=== PATIENT | male | born 1965 | race Caucasian/White ===

== ENCOUNTER 2018-02-28 03:45 | Emergency (ER) | payer MEDICAID ==
[~2018-02-28] VITALS: Ht 165.1 cm; Wt 70.4 kg
[2018-02-28 03:54] VITALS: BP 182/104
--- NOTE | 2018-02-28 04:01 | NUR ---
52/M BIB FAMILY W C/O RT SIDE CHEST PAIN AND SOB X 0200 TODAY. CHEST PAIN, PRESSURE-LIKE, NONPROVOKED, NONRADIAITING X 0200, PER FAMILY PT CP HAS BEEN INTERMITTENT FOR 2 MONTHS AND HAS BEEN SEEN BY MD. HEART SOUNDS NORMAL. DENIES N/V, PT IS NONDIAPHORETIC. ALL LUNG SOUNDS CBTA, 18RR EVEN AND UNLABORED, SATS 98% RA. DENIES OTHER PMH/RX/OTC
--- NOTE | 2018-02-28 04:02 | NUR ---
PT AMBULATED TO BED 6
[2018-02-28] MEDS ORDERED: ASPIRIN 325 MG TAB PO ONE (04:10)
[2018-02-28 04:21] LABS: BASOPHILS # (AUTO) 0.1 K/uL (0.00-0.22); BASOPHILS % (AUTO) 1.1 % (0.0-2.0); EOSINOPHILS # (AUTO) 0.3 K/uL (0-0.4); EOSINOPHILS % (AUTO) 3.9 % (0.0-4.0); HEMATOCRIT 44.1 % (36-52); HEMOGLOBIN 14.7 g/dL (12.0-18.0); LYMPHOCYTES # (AUTO) 2.4 K/uL (2.0-11.5); LYMPHOCYTES % (AUTO) 31.7 % (20.5-51.1); MEAN CORPUSCULAR HEMOGLOBIN 29 pg (27-31); MEAN CORPUSCULAR HGB CONC 33 g/dL (33-37); MEAN CORPUSCULAR VOLUME 87.2 fL (80-94); MONOCYTES # (AUTO) 0.8 K/uL (0.8-1.0); MONOCYTES % (AUTO) 9.9 % (1.7-9.3); NEUTROPHILS # (AUTO) 4.1 K/uL (1.8-7.7); NEUTROPHILS % (AUTO) 53.4 % (42.2-75.2); PLATELET COUNT (AUTO) 266 K/uL (140-450); RED BLOOD CELL COUNT(AUTO) 5.05 MIL/uL (4.20-6.10); RED CELL DISTRIBUTION WIDTH 13.2 % (11.6-13.7); WHITE BLOOD COUNT (AUTO) 7.6 K/uL (4.8-10.8)
[2018-02-28 04:34] LABS: ANION GAP 13.8 (8-16); CARBON DIOXIDE 26.6 mmol/L (21-32); CREATININE 0.9 mg/dL (0.7-1.3); POTASSIUM 3.4 mmol/L (3.5-5.1)
[2018-02-28 04:41] LABS: ALBUMIN 3.9 g/dL (3.4-5.0); TOTAL BILIRUBIN 0.3 mg/dL (0.0-1.0)
--- NOTE | 2018-02-28 04:43 | NUR ---
X-Ray at bedside.
[2018-02-28 04:47] LABS: CREATINE KINASE MB 4.3 ng/mL (0-3.6)
--- NOTE | 2018-02-28 05:24 | NUR ---
Dr. Howard evalauting patient at bedside.
[2018-02-28 06:28] LABS: CREATINE KINASE MB 3.8 ng/mL (0-3.6)
[2018-02-28 06:49] VITALS: BP 133/82
--- NOTE | 2018-02-28 06:49 | NUR ---
Patient discharged with v/s stable. Written and verbal after care instructions given and explained. Patient verbalized understanding. Ambulatory with steady gait. All questions addressed prior to discharge. Advised to follow up with PMD.
== END 2018-02-28 06:49 | disposition home or self-care (01) ==
LOC: MED 03:45
DX: I10 Essential (primary) hypertension (principal); R06.00 Dyspnea, unspecified; R07.9 Chest pain, unspecified
CPT/HCPCS: 36415; 71045; 80053; 82550; 82553; 83690; 84484; 85025; 93005; 99285